=== PATIENT | male | born 1970 | race Caucasian/White ===

== ENCOUNTER 2025-03-13 16:22 | Emergency (ER) | payer BC, SELFPAY ==
[2025-03-13 16:29] VITALS: BP 146/89
--- NOTE | 2025-03-13 16:35 | ED.GENMED ---
History of Present Illness
General
Chief Complaint: Chest Pain
Source: patient
Exam Limitations: none
Time Seen by Provider: 03/13/25 16:35
History of Present Illness
History of Present Illness:
54yoM with a history of hypertension and hyperlipidemia presenting for evaluation of chest pain. Patient reports constant pain in his right anterior chest that began yesterday around 7 PM. Pain is described as an aching sensation which worsens
with deep breathing. Pain is non-radiating. He also feels slightly short of breath and generally feels unwell. He took Tylenol without any relief. He denies any trauma or heavy lifting. No nausea, vomiting, diaphoresis, dizziness, syncope,
paresthesias, abdominal pain, leg swelling, cough, fever. He saw a link trainer maintenance worker a few years ago due to chest pain which was thought to be musculoskeletal. He denies any history of heart disease. No tobacco use.
Phy Exam
General Physical Exam
General Presentation: well appearing and no apparent distress
General Skin: warm and dry
General Habitus: normal
General Mental: alert
ENT Exam
ENT Exam: normocephalic
Cardiovascular Exam
Cardiovascular Exam: regular rate/rhythm, no edema and no murmur
Pulmonary Exam
Pulmonary Exam: lungs clear, no respiratory distress, no rales, no crackles, no rhonchi, no wheezing and other (+Focal tenderness to R anterior chest wall just lateral to sternum. No skin changes.)
Neurological Exam
Neurological Exam: alert
Gibran Coma Scale
Eye Opening: Spontaneous
Verbal Response: Oriented
Motor Response: Obeys Commands
GCS Total Score: 15
Skin Exam
Skin Exam: normal color and warm/dry
Psychiatric Exam
Psychiatric Exam: normal mood/affect
Scores
Heart Score for Chest Pain Patients
STEMI patient?: No
History: Slightly or Non-Suspicious
ECG: Normal
Age: >45 - <65 years
Risk Factors: 1 or 2 Risk Factors
Troponin: </= Normal Limit
Heart Score for Chest Pain Patients: 2
Heart Score Risk: 2.5% MACE over next 6 weeks
Course
Orders/Labs/Results
Orders:
Orders
03/13/25 16:23
EKG [Electrocardiogram (*1)] Urgent
Reason for Study: Chest Pain
EKG- Treatment ONCE
03/13/25 16:46
Cardiac Monitoring- Treatment ONCE
03/13/25 16:52
Complete Blood Count/With Diff Urgent
Comprehensive Metabolic Panel Urgent
D-Dimer Urgent
Troponin I Urgent
03/13/25 17:19
CR Chest - 2 Views Urgent
Comment:
Reason For Exam: R sided chest pain
03/13/25 18:47
Ketorolac [Toradol] 15 mg IV NOW STA
Abnormal Lab Results
03/13/25
16:52
Absolute Monos (auto) 0.7 H 10^3/uL
(0.1-0.6)
Lymphocytes % 19.3 L %
(20.5-51.1)
Monocytes % 10.9 H %
(1.7-9.3)
BUN 21 H mg/dl
(9-20)
Glucose 107 H mg/dl
(70-99)
Total Bilirubin 1.4 H mg/dl
(0.2-1.3)
03/13/25 16:52
03/13/25 16:52
Vital Signs
Initial and Last Documented VS:
Initial Vital Signs
Temp Pulse Resp BP Pulse Ox
98.4 F 83 18 146/89 99
03/13/25 16:29 03/13/25 16:29 03/13/25 16:29 03/13/25 16:29 03/13/25 16:29
Last Documented Vital Signs
Temp Pulse Resp BP Pulse Ox
98.4 F 78 17 130/81 96
03/13/25 16:29 03/13/25 19:15 03/13/25 18:00 03/13/25 19:00 03/13/25 19:30
MDM/Problems Addressed
Differential Diagnosis Includes:
54yoM here with R sided chest pain since last night. Pleuritic in nature. No VTE risk factors and no calf pain/leg swelling. Vitals stable and oxygen saturation 99% in triage. There is reproducible chest wall tenderness on exam. Differential
diagnosis includes but is not limited to: musculoskeletal/costochondritis, pleurisy, pneumonia, PE, ACS
Initial ED plan: Triage EKG shows NSR without ischemic changes. Will check cardiac labs, D-dimer, and CXR vs. CT chest depending on D-dimer results.
*Pulse Oximetry
SaO2: 99
Oxygen Mode of Delivery: Room air
Patient hypoxic: no
*EKG
Interpreted by ED Provider?: Yes
EKG Intrepretation Date: 03/13/25
Heart Rate: 78
Rate: normal
Rhythm: sinus
[place]: normal axis
Interval: normal interval
QRS Pattern: normal QRS
Ischemia: no ischemia
*Critical Care Note
Total Time (30-74mins, 75-104mins- exclusive of procedures): Not Applicable
Update Note
Update Note:
Labs unremarkable. D-dimer normal making PE very unlikely. Troponin undetectable. CXR obtained which is normal. Suspect musculoskeletal chest pain given reproducibility of pain on exam. HEART score 2. No indication for hospitalization. Supportive
care discussed. He was advised to f/u closely with his PCP and strict ED return precautions reviewed. Patient in agreement with plan and was discharged in stable condition.
ED Attending Note
-
Portions of this chart may have been created with voice recognition software.� Occasional wrong word or��sound alike� substitutions may have occurred due to the inherent limitations of voice recognition software.
Discharge Plan
Departure
Patient Disposition: Home (Routine Discharge)
Date of Disposition: 03/13/25
Time of Disposition: 18:48
Patient with high blood pressure during this ER visit?: No
Discharge Problem:
Chest wall pain
Instructions: Chest Pain PCP Follow Up
Referrals:
Angel Gonzalez DO [Family Provider, Family Practice]
Activity Restrictions/Additional Instructions:
You may take Tylenol and ibuprofen as needed for pain. Apply heat to affected area.
Please call tomorrow to schedule a follow-up appointment with your family doctor. Return to the ER immediately with any new or worsening symptoms.
Interventions
Interventions:
*Risk Screen - Suicide Last Done: 03/13/25 16:29
*General Assessment Last Done: 03/13/25 16:29
*Neglect/Abuse Screening Last Done: 03/13/25 16:29
*ED COVID-19 Vaccine History Last Done: 03/13/25 19:52
*ED Influenza Vaccine History Last Done: 03/13/25 19:52
[facility] Fall Risk Assessment Tool Last Done: 03/13/25 17:00
*Nursing Disposition Last Done: 03/13/25 19:51
ED- Cardiac Assessment Last Done: 03/13/25 17:01
Discharge Date and Time
Discharge Date/Time: 03/13/25 19:52
Print Language: IRISH
[2025-03-13 16:50] VITALS: BP 115/83
[2025-03-13 16:53] VITALS: BMI 29.5
[2025-03-13 17:00] VITALS: BP 134/78
[2025-03-13 17:13] LABS: Hematocrit 40.9 % (39.0-52.0); Hemoglobin 14.2 g/dL (13.0-18.0); Mean Corp Hgb Conc. 34.7 g/dL (33.0-37.0); Mean Corpuscular Volume 83.1 fL (80.0-94.0); Nucleated Red Blood Cells % 0 % (-); Platelet Count 141 10^3/uL (130-400); Red Cell Dist. Width 12.3 % (11.5-14.5)
[2025-03-13 17:14] LABS: D-Dimer 0.29 ug/mlFEU (0.00-0.50)
[2025-03-13 17:26] LABS: ALT (SGPT) 40 U/L (0-50); AST (SGOT) 31 U/L (17-59); Albumin 4.6 g/dl (3.5-5.0); Alkaline Phosphatase 52 U/L (38-126); Blood Urea Nitrogen 21 mg/dl (9-20); Calcium 9.4 mg/dl (8.4-10.2); Carbon Dioxide 23 mmol/L (22-30); Chloride 104 mmol/L (98-107); Estimated Creatinine Clearance 77 ml/min; Glucose 107 mg/dl (70-99); Potassium 4.1 mmol/L (3.5-5.1); Sodium 135 mmol/L (135-145); Total Protein 7.2 g/dl (6.3-8.2); Troponin I < 0.012 ng/ml; eGFR > 60.00
[2025-03-13 18:00] VITALS: BP 118/84
[2025-03-13 19:00] VITALS: BP 130/81
[2025-03-13] MEDS: TORADOL 15 MG IV (19:38)
== END 2025-03-13 19:52 | disposition home or self-care (01) ==
LOC: EMR 16:22
PROVIDERS: Physician Assistant; EMERGENCY PHYSICIAN Emergency Medicine; FAMILY PHYSICIAN Family Medicine
DX: R07.89 Other chest pain (principal); I10 Essential (primary) hypertension; E78.5 Hyperlipidemia, unspecified
CPT/HCPCS: 96374; 99285; 71046; 80053; 84484; 85025; 85379; 93005